=== PATIENT | female | born 2000 | race African-American/Black ===

== ENCOUNTER 2019-12-23 07:55 | Outpatient (CLI) | payer OTHER ==
--- NOTE | 2019-12-23 09:58 | ULT ---
ULTRASOUND COMPLETE GREATER THAN 14 WEEKS: HISTORY: Anatomy, cervix evaluation. FINDINGS: Single viable intrauterine fetus is noted in breech presentation. The placenta is posterior, but no evidence for placenta previa. heart rate 144 b.p.m. Amniotic fluid within normal limits. Cervical Length 3.2 cm. Anatomy: Visualized brain, 4-chamber heart, 3-vessel cord, stomach, bladder, kidney, spine, and extremit y regions were unremarkable, lips and nose region was somewhat obscured by the baby's hand. Biometry: BPD 5.3 cm-22 weeks 2 days Head circumference 20.6 cm-22 weeks 5 days Abdominal circumference 18.2 cm-23 weeks 1 day Femur 3.5 cm-21 weeks 2 days IMPRESSION: Single viable intrauterine fetus 22 weeks 3 days. Estimated date of delivery 04/22/2020. Estimated weight 489 gm. POS: OFF
== END 2019-12-23 07:56 | disposition home or self-care (01) ==
LOC: BICULT 07:55
PROVIDERS: ATTEND Family Medicine
DX: O09.892 Supervision of other high risk pregnancies, second trimester (principal); Z3A.22 22 weeks gestation of pregnancy
CPT/HCPCS: 76805

== ENCOUNTER 2020-03-30 23:12 | Inpatient (IN) | payer OTHER ==
[2020-03-30] MEDS ORDERED: hydrALAZINE 20 MG/ML VIAL SLOW IVP PRN (23:43)
--- NOTE | 2020-03-31 00:01 | PDOC.LDHP ---
Labor and Delivery H&P Chief complaint: contractions HPI: 20 y/o G1 at 36w5d, patient of Dr. Lizama, presents with ctx since 3:00pm, becoming more regular since 9:00pm. She also feels a lot of pelvic pressure. Denies VB, LOF, PIH sx, UTI sx, or decreased FM. ROS neg for HEENT, cv, pulm, gi, gu, neuro, psych, skin, musculoskeletal or constitutional symptoms other than mentioned above. OB History Details: First Current complications: none Past Medical History: None Current medications: pre- vitamins Previous surgical history: none Social history: none - Physical Exam Abnormal vital signs: mild to severe range BPs General: NAD, resting Lungs: nonlabored breathing Abdomen: gravid Extremeties: no edema FHT: category 1 (125, mod variability, + accels, no decels) [place] contractions every: 6 mins - Vaginal Exam cm dilated: 0 Effacement: 0% Station: -3 - OB Labs Blood type: B RH: positive - Assessment 20 y/o G1 at 36w5d with new onset mild to severe range BPs. status reassuring. - Plan Plan: admit to L&D -: Continue BP monitoring with treatment if needed PIH labs, UDS pending Dr. Lizama notified
[2020-03-31] MEDS ORDERED: Promethazine HCl 25 MG/ML VIAL IM PRN (00:05)
[2020-03-31] MEDS ORDERED: Acetaminophen 500 MG TAB PO PRN (00:05)
[2020-03-31] MEDS ORDERED: hydrALAZINE 20 MG/ML VIAL SLOW IVP PRN (00:05)
[2020-03-31 00:25] LABS: Hemoglobin 10.6 g/dL (12.0-16.0); Mean Corpuscular HGB CONC 33.2 g/dL (32.0-36.0); Mean Corpuscular Hemoglobin 26.9 pg (27.0-31.0); Mean Corpuscular Volume 80.9 fL (78.0-98.0); Platelet Count 298 thou/uL (130-400); RBC Distribution Width 14.1 % (11.5-14.5); Red Blood Cell (RBC) Count 3.94 mill/uL (4.20-5.40); White Blood Cell (WBC) Count 8.6 thou/uL (4.8-10.8)
[2020-03-31 00:37] LABS: ALT (SGPT) 127 U/L (8-55); AST (SGOT) 72 U/L (5-34); Albumin 3.3 g/dL (3.5-5.0); Alkaline Phosphatase 144 U/L (40-110); Anion Gap 15 mmol/L (10-20); BUN (Urea Nitrogen) 9 mg/dL (7.0-18.7); Bilirubin, Total 0.2 mg/dL (0.2-1.2); Calc. Creatinine Clearance 0 mL/min (70-130); Calcium 9.1 mg/dL (7.8-10.44); Carbon Dioxide 19 mmol/L (22-29); Chloride 108 mmol/L (98-107); Globulin 4.2 g/dL (2.4-3.5); Glucose 82 mg/dL (70-105); Potassium 3.7 mmol/L (3.5-5.1); Protein, Total 7.5 g/dL (6.0-8.3); Sodium 138 mmol/L (136-145)
[2020-03-31 00:38] VITALS: BMI 50.6
[2020-03-31 01:01] LABS: MDiff Complete? YES
[2020-03-31 01:02] LABS: Band 10 % (5-11); Lymphocytes 26 % (21-51); Monocytes 6 % (0-10); Neutrophil 58 % (42-75)
[2020-03-31 01:06] LABS: Amphetamine Not Detected (NotDetected); Barbiturates Screen Not Detected (NotDetected); Benzodiazepine Screen Not Detected (NotDetected); Cocaine Metabolite Screen Not Detected (NotDetected); Medtox Reader # READER 4; Methadone Not Detected (NotDetected); Methamphetamine Not Detected (NotDetected); Opiate Screen Not Detected (NotDetected); Oxycodone Screen Not Detected (NotDetected); Phencyclidine (PCP) Not Detected (NotDetected); THC/Cannabinoid Screen Not Detected (NotDetected); Tricyclic Screen Not Detected (NotDetected)
[2020-03-31 01:07] LABS: Medtox Control Line Valid? VALID (VALID)
[2020-03-31 01:11] LABS: Creatinine, Urine 135.82 mg/dL (47-110)
[2020-03-31 04:31] LABS: HBSAg Index 0.12 S/CO (0-0.99); Hep B Surf Ag Non-Reactive S/CO (NonReactive)
[2020-03-31 05:27] LABS: ALT (SGPT) 125 U/L (8-55); AST (SGOT) 68 U/L (5-34); Albumin 3.2 g/dL (3.5-5.0); Alkaline Phosphatase 145 U/L (40-110); Anion Gap 17 mmol/L (10-20); BUN (Urea Nitrogen) 8 mg/dL (7.0-18.7); Bilirubin, Total 0.2 mg/dL (0.2-1.2); Calc. Creatinine Clearance 249 mL/min (70-130); Calcium 9.1 mg/dL (7.8-10.44); Carbon Dioxide 19 mmol/L (22-29); Chloride 106 mmol/L (98-107); Globulin 3.6 g/dL (2.4-3.5); Glucose 70 mg/dL (70-105); Protein, Total 6.8 g/dL (6.0-8.3); Sodium 138 mmol/L (136-145)
[2020-03-31 06:12] LABS: Syphilis Antibody Nonreactive (Nonreactive); Syphilis Antibody Index 0.08 S/CO (<1.00 Non-Reactive)
[2020-03-31] MEDS ORDERED: Lidocaine 1% (PF) 30 ML VIAL SC PRN (08:02)
[2020-03-31] MEDS ORDERED: NS / Oxytocin 40 units/1000ml 1,000 ML IV PRN (08:02)
[2020-03-31] MEDS ORDERED: Misoprostol 200 MCG TAB PR PRN (08:02)
[2020-03-31] MEDS ORDERED: HYDROcodone/Acetaminophen 5/325 mg Tablet PO PRN ×2 (08:02)
[2020-03-31] MEDS ORDERED: Ibuprofen 800 MG TAB PO PRN (08:02)
[2020-03-31] MEDS ORDERED: Diphenoxylate HCl/Atropine Tablet PO PRN ×2 (08:02)
[2020-03-31] MEDS ORDERED: Carboprost 250 MCG/ML AMP IM PRN (08:02)
[2020-03-31] MEDS ORDERED: NS w/ Oxytocin 10 units 500 ML IV SCH (08:15)
[2020-03-31] MEDS ORDERED: Misoprostol 100 MCG TAB VAG SCH (08:15)
[2020-03-31 09:19] LABS: SARS-CoV-2 MS2 Positive; SARS-CoV-2 N Gene Negative; SARS-CoV-2 S Gene Negative; SARS-CoV-2 by NAA Not Detected (NotDetected); SARS-CoV-2 orf1ab Negative
[2020-03-31] MEDS ORDERED: Bupivacaine/Epinephrine 0.25% 30 ML VIAL ONE (12:24)
[2020-03-31] MEDS ORDERED: ePHEDrine 50 MG/ML VIAL ONE (12:24)
[2020-03-31] MEDS: Misoprostol 100 MCG TAB VAG SCH ×2 (14:11→23:38)
[2020-03-31] MEDS: Ondansetron PF 4 MG/2 ML Vial IVP PRN (17:00)
[2020-03-31] MEDS: Butorphanol Tartrate 1 MG/ML VIAL SLOW IVP PRN ×2 (18:04→22:17)
[2020-03-31] MEDS ORDERED: Penicillin G Potassium 5 MILL.UNITS VIAL ONE (18:36)
[2020-03-31] MEDS ORDERED: Zolpidem Tartrate 5 MG TAB PO PRN (23:50)
[2020-04-01] MEDS: Lactated Ringer's 1,000 ML IV SCH ×2 (00:05→19:17)
[2020-04-01] MEDS: Ondansetron PF 4 MG/2 ML Vial IVP PRN ×4 (00:31→20:49)
[2020-04-01] MEDS: Misoprostol 100 MCG TAB VAG SCH ×4 (02:45→20:35)
[2020-04-01] MEDS: Butorphanol Tartrate 1 MG/ML VIAL SLOW IVP PRN ×3 (06:49→18:33)
--- NOTE | 2020-04-01 07:57 | PRG ---
DATE OF SERVICE: 04/01/2020 HISTORY OF PRESENT ILLNESS: The patient is a 20-year-old morbidly obese female, diagnosed yesterday with preeclampsia with severe features as evidenced by twice normal LFTs and elevated blood pressures. She was started with Cytotec induction yesterday morning. Over the course of the day, the patient has received four doses of Cytotec. Blood pressures have remained primarily in the normal to mild range with some isolated severe pressures. The patient remains asymptomatic. Most recent blood pressure is 121/72 and heart rate of 94. In general, the patient was sleeping when I arrived to the room, easily arousable. The patient reports that she is having good pain control with the IV medications and that she slept fairly well last night with Ambien. PHYSICAL EXAMINATION: GENERAL: The patient appears to be in no acute distress. She is alert, oriented, cooperative, and pleasant to interact. HEAD: Normocephalic and atraumatic. : Cervical exam; cervix is soft, but still closed, finger able to pass through most of the cervical length. DIAGNOSTIC STUDIES: heart tracing shows the fetus with a baseline of around 120s and 130s with moderate variability, positive accelerations, no repetitive decelerations of concern. Tocometer is difficult to trace contractions. She has a lot of irritability with . Repeat CMP and hepatitis C antibody have been ordered this morning. ASSESSMENT AND PLAN: The patient is a 20-year-old female with preeclampsia severe by LFTs. We do have a hep C pending. She does have negative hepatitis B surface antigen and negative drug screen. We will continue Cytotec at this time for cervical ripening. She may benefit from a rest. She can shower, can eat, and then can proceed once again. Job ID: [id number]
[2020-04-01 12:20] LABS: ALT (SGPT) 111 U/L (8-55); AST (SGOT) 61 U/L (5-34); Albumin 3.4 g/dL (3.5-5.0); Alkaline Phosphatase 161 U/L (40-110); Anion Gap 14 mmol/L (10-20); BUN (Urea Nitrogen) 6 mg/dL (7.0-18.7); Bilirubin, Total 0.3 mg/dL (0.2-1.2); Calc. Creatinine Clearance 227 mL/min (70-130); Calcium 9.7 mg/dL (7.8-10.44); Carbon Dioxide 22 mmol/L (22-29); Chloride 106 mmol/L (98-107); Globulin 4.7 g/dL (2.4-3.5); Glucose 88 mg/dL (70-105); Potassium 3.8 mmol/L (3.5-5.1); Protein, Total 8.1 g/dL (6.0-8.3); Sodium 138 mmol/L (136-145)
[2020-04-01 12:35] LABS: Hep C IgG Ab Non-Reactive (NonReactive); Hep C Index 0.09 S/CO (0-0.79)
--- NOTE | 2020-04-01 13:30 | OP ---
DATE OF PROCEDURE: 04/01/2020 TIME OF SERVICE: 1300 hours. SUBJECTIVE: Ms. Abdi not made significant cervical change after multiple doses of Cytotec. Dr. Graham and I discussed her care this morning and gave in the morning. She had clear liquids several times, however, she is kind of had persistent nausea and vomiting that I attribute to multiple doses of Cytotec. Her blood pressures have remained, not requiring Apresoline or labetalol at this point in time. She and I discussed her options, and at this point in time, we will go ahead and proceed with Cook cervical dilatation balloon. Sliding speculum was placed in vagina. The cervix was identified, cleaned with Betadine. The Cook balloon was easily introduced at fingertip and 20% effaced. It was introduced and 20 mL placed in the inner balloon, pulled snugly up against the cervix and 20 mL put in the outer balloon. The Sliding speculum was removed and another 40 mL was placed in each balloon for total of 60 and 60. Those will be left there until approximately 0100 on 04/02 and plan removal at that time with Pitocin induction. We will follow blood pressures. Job ID: [id number]
[2020-04-01 22:42] LABS: Band 3 % (5-11); Hemoglobin 12.3 g/dL (12.0-16.0); Lymphocytes 15 % (21-51); MDiff Complete? YES; Mean Corpuscular HGB CONC 32.2 g/dL (32.0-36.0); Mean Corpuscular Hemoglobin 26.5 pg (27.0-31.0); Mean Corpuscular Volume 82.1 fL (78.0-98.0); Mean Platelet Volume 8.3 fL (7.4-10.4); Monocytes 5 % (0-10); Neutrophil 77 % (42-75); Platelet Count 316 thou/uL (130-400); Platelet Morphology Comment Appears Adequate; RBC Distribution Width 14.5 % (11.5-14.5); Red Blood Cell (RBC) Count 4.64 mill/uL (4.20-5.40)
[2020-04-02] MEDS: Misoprostol 100 MCG TAB VAG SCH ×5 (00:22→15:01)
[2020-04-02] MEDS: Lactated Ringer's 1,000 ML IV SCH ×3 (00:23→08:57)
[2020-04-02] MEDS: Ondansetron PF 4 MG/2 ML Vial IVP PRN (01:32)
[2020-04-02] MEDS: Butorphanol Tartrate 1 MG/ML VIAL SLOW IVP PRN ×3 (01:42→07:11)
[2020-04-02] MEDS ORDERED: Penicillin G Potassium 5 MILL.UNITS VIAL ONE (01:50)
[2020-04-02] MEDS ORDERED: Penicillin G Potassium 5 MILL.UNITS in Sodium Chloride 0.9% 100 ML IVPB SCH (02:15)
[2020-04-02] MEDS: Penicillin G 2.5 MILL.units 50 ML IVPB SCH ×3 (06:26→16:24)
--- NOTE | 2020-04-02 07:14 | PRG ---
DATE OF SERVICE: 04/02/2020 TIME OF SERVICE: 0650. SUBJECTIVE: Ms. Abdi is resting comfortably. Her Pit is at 4. Her cervix is 5, 80, -1 per RN exam, intact. Blood pressures have been ranging 130s to 150 systolic over 80s to 90s diastolic. She is resting comfortably. LABORATORY DATA: Repeat a.m. base met, AST and CBC were ordered. The only one that is back is a hematocrit which is at 38% with normal platelet count at 316. Urine output remains the same. IMPRESSION: Severe gestational hypertension, status post Cytotec, now status post cervical dilatation balloon and on Pitocin. PLAN: Continue Pitocin. Anticipate spontaneous vaginal delivery. We will follow up repeat labs. Dr. Graham will be taking over patient's care at 0800. Job ID: [id number]
[2020-04-02 07:16] LABS: AST (SGOT) 45 U/L (5-34); Anion Gap 18 mmol/L (10-20); BUN (Urea Nitrogen) 7 mg/dL (7.0-18.7); Calc. Creatinine Clearance 222 mL/min (70-130); Calcium 9.3 mg/dL (7.8-10.44); Carbon Dioxide 17 mmol/L (22-29); Chloride 107 mmol/L (98-107); Glucose 89 mg/dL (70-105); Potassium 3.6 mmol/L (3.5-5.1); Sodium 138 mmol/L (136-145)
[2020-04-02] MEDS ORDERED: DISCONTINUE ALL PREVIOUS NARCOTICS FS SCH (07:45)
[2020-04-02] MEDS ORDERED: Bupivacaine 0.5% 20 ML, fentaNYL Citrate/PF 400 MCG in Sodium Chloride 0.9% 72 ML EPIDURAL SCH (07:45)
[2020-04-02] MEDS ORDERED: Ondansetron PF 4 MG/2 ML Vial IVP PRN ×2 (08:32→15:58)
[2020-04-02] MEDS ORDERED: Lactated Ringer's 500 ML IV PRN (08:32)
[2020-04-02] MEDS ORDERED: Naloxone HCl 0.4 mg/ml Vial IVP PRN ×2 (08:32)
[2020-04-02] MEDS ORDERED: Acetaminophen 325 MG TAB PO PRN (08:32)
[2020-04-02] MEDS ORDERED: ePHEDrine 50 MG/ML VIAL SLOW IVP PRN (08:32)
[2020-04-02] MEDS ORDERED: Promethazine HCl 25 MG/ML VIAL IM PRN (08:32)
[2020-04-02] MEDS ORDERED: diphenhydrAMINE 50 MG/ML VIAL IVP PRN (08:32)
[2020-04-02] MEDS ORDERED: Fentanyl 4 mcg/Bupivacaine 0.1% Cassette 100 ML EPIDURAL SCH (08:45)
[2020-04-02] MEDS ORDERED: Communication Order-Pharmacy FS SCH (08:45)
[2020-04-02] MEDS ORDERED: Misoprostol 200 MCG TAB ONE (14:32)
[2020-04-02] MEDS ORDERED: Carboprost 250 MCG/ML AMP ONE (14:32)
[2020-04-02] MEDS ORDERED: Bisacodyl 10 MG SUPP PR PRN (15:58)
[2020-04-02] MEDS ORDERED: Adacel (T-DAP) 0.5 ML SYRINGE IM ONE (15:58)
[2020-04-02] MEDS ORDERED: hydrALAZINE 20 MG/ML VIAL SLOW IVP PRN (15:58)
[2020-04-02] MEDS ORDERED: Milk Of Magnesia 30 ML UDCUP PO PRN (15:58)
[2020-04-02] MEDS ORDERED: Zolpidem Tartrate 5 MG TAB PO PRN (15:58)
[2020-04-02] MEDS ORDERED: Preparation H Ointment 28 GM TUBE PR PRN (15:58)
[2020-04-02] MEDS ORDERED: NS / Oxytocin 40 units/1000ml 1,000 ML IV SCH (15:58)
[2020-04-02] MEDS ORDERED: Lanolin Ointment 7 GM TUBE TOP PRN (15:58)
--- NOTE | 2020-04-02 16:36 | DN ---
DATE OF PROCEDURE: 04/02/2020 PRIMARY OB: Dr. Angel Lizama. The patient delivered a male on 04/02/2020 by an uncomplicated term spontaneous vaginal delivery at 37 weeks and a day at 1424 hours. Apgars were 8 and 9. weight 2736 g. Placenta delivered spontaneously followed by Pitocin infusion. There was a first-degree laceration repaired for hemostasis. Dr. Graham is the delivering physician. Quantitative blood loss is 258 mL. Counts were correct. Complications, none. Mother and baby are stable in the room in the immediate . Job ID: [id number]
[2020-04-02] MEDS ORDERED: Ferrous Sulfate 325 MG TAB PO SCH (17:00)
[2020-04-02] MEDS: Ibuprofen 800 MG TAB PO SCH (22:09)
[2020-04-02] MEDS: Docusate Calcium (SURFAK) 240 MG CAP PO SCH (22:09)
[2020-04-02] MEDS ORDERED: Sodium Chloride 0.9% 10 ML ONE (23:31)
[2020-04-03] MEDS: diphenhydrAMINE 25 MG CAP PO PRN ×2 (01:07→09:16)
[2020-04-03] MEDS: Ibuprofen 800 MG TAB PO SCH ×5 (01:07→21:36)
[2020-04-03 06:09] LABS: Hemoglobin 9.7 g/dL (12.0-16.0)
[2020-04-03] MEDS ORDERED: Promethazine 25 MG TAB PO PRN (06:42)
--- NOTE | 2020-04-03 08:03 | PRG ---
DATE OF SERVICE: 04/03/2020 PRIMARY OB: Angel Lizama MD SUBJECTIVE: The patient is day 1, status post a term spontaneous vaginal delivery. Her course has been complicated with preeclampsia with severe features. The patient yesterday had a temperature T-max of 100.7, which was not treated. Over the subsequent course the day, the patient's temperature did not spike again. Her current temperature this morning is 99.1. The patient reports that she is having no pain, but that she is having difficulty eating as when she tries to eat, she throws up. This has been a problem that she has been experiencing since earlier in her labor course. OBJECTIVE: VITAL SIGNS: Overnight also, the patient's blood pressures have primarily remained in the mild range. A T-max of . Current blood pressure is 147/78, temperature 99.1, pulse of 87, respiratory rate of 20, saturating at 98% on room air. GENERAL: She appears to be in no acute distress. She is resting at the time of my evaluation. She is alert, oriented, and in no acute distress. PELVIS: Her fundus is difficult to assess, but it is nontender to palpation. LABORATORY DATA: Hemoglobin and hematocrit this morning are 9.7 and 28.0. ASSESSMENT AND PLAN: The patient is a 20-year-old female, day 1, status post a term spontaneous vaginal delivery. The patient's course has been complicated by preeclampsia with severe features by elevated LFTs. She continues to have nausea and vomiting this morning when eating. We will repeat her CMP this morning to make sure her LFTs are dropping and check a white count. If the patient spikes no temperature today, we will start antibiotics for endometritis; though, clinically at this time, the patient has no signs of it. Job ID: [id number]
[2020-04-03 08:26] LABS: Hemoglobin 9.6 g/dL (12.0-16.0); Mean Corpuscular HGB CONC 33.6 g/dL (32.0-36.0); Mean Corpuscular Hemoglobin 27.6 pg (27.0-31.0); Mean Corpuscular Volume 82.3 fL (78.0-98.0); Mean Platelet Volume 7.9 fL (7.4-10.4); Platelet Count 259 thou/uL (130-400); RBC Distribution Width 14.3 % (11.5-14.5); Red Blood Cell (RBC) Count 3.49 mill/uL (4.20-5.40); White Blood Cell (WBC) Count 14.1 thou/uL (4.8-10.8)
[2020-04-03 08:41] LABS: ALT (SGPT) 55 U/L (8-55); AST (SGOT) 30 U/L (5-34); Albumin 2.9 g/dL (3.5-5.0); Alkaline Phosphatase 115 U/L (40-110); Anion Gap 16 mmol/L (10-20); BUN (Urea Nitrogen) 5 mg/dL (7.0-18.7); Bilirubin, Total 0.3 mg/dL (0.2-1.2); Calc. Creatinine Clearance 233 mL/min (70-130); Calcium 8.7 mg/dL (7.8-10.44); Carbon Dioxide 19 mmol/L (22-29); Chloride 109 mmol/L (98-107); Globulin 3.7 g/dL (2.4-3.5); Glucose 87 mg/dL (70-105); Potassium 3.5 mmol/L (3.5-5.1); Protein, Total 6.6 g/dL (6.0-8.3); Sodium 140 mmol/L (136-145)
[2020-04-03] MEDS ORDERED: Prenatal Vitamin 1 TAB PO SCH (09:00)
[2020-04-03 09:02] LABS: Band 3 % (5-11); Eosinophils 3 % (0-10); Large Platelets SLIGHT; Lymphocytes 9 % (21-51); MDiff Complete? YES; Monocytes 7 % (0-10); Neutrophil 78 % (42-75); Platelet Morphology Comment Appears Adequate
[2020-04-03] MEDS: Docusate Calcium (SURFAK) 240 MG CAP PO SCH ×4 (09:16→21:38)
[2020-04-03] MEDS: Metoclopramide HCl 10 MG TAB PO SCH ×3 (09:16→21:36)
[2020-04-04] MEDS: Ibuprofen 800 MG TAB PO SCH ×3 (05:44→21:43)
--- NOTE | 2020-04-04 07:18 | PDOC.PP ---
Post Progress Note Post Day #: 2 Subjective: Doing well. Has an appetite this morning, is waiting to see if her breakfast stays down. She has tolerated jello thus far. PO intake tolerated: no Flatus: yes Ambulation: yes Vital Signs (12 hours) Temp Pulse Resp BP Pulse Ox 04/04/20 05:45 98.9 F 92 20 141/74 H 97 04/03/20 20:20 98.9 F 95 20 134/74 95 Weight Weight 133.81 kg - Physical Examination General: NAD Cardiovascular: no m/r/g, RRR Respiratory: clear to auscultation bilaterally, non-labored breathing Abdominal: + bowel sounds, lochia, no distention, appropriately TTP Neurological: no gross focal deficits Psychiatric: A&Ox3, normal affect Result Diagrams: 04/03/20 08:06 04/03/20 08:06 Additional Labs: Post Labs Hep Bs Antigen Non-Reactive S/CO (NonReactive) 03/31/20 03:14 Blood Type B POSITIVE 03/31/20 03:14 (1) Term delivered Code(s): O80 - ENCOUNTER FOR FULL-TERM UNCOMPLICATED DELIVERY Status: Acute (2) Severe pre-eclampsia Code(s): O14.10 - SEVERE PRE-ECLAMPSIA, UNSPECIFIED TRIMESTER Status: Acute - Assessment/Plan PPD #2 s/p 04/02 - Routine recovery. - Has remained afebrile Pre-eclampsia with severe range pressures - Will monitor overnight one more night for blood pressure. - LFTs have continued to trend down. Emanuel CROWLEY PGY2 Discussed with Dr. Graham attending.
[2020-04-04] MEDS: Metoclopramide HCl 10 MG TAB PO SCH ×4 (08:48→21:42)
[2020-04-04] MEDS: Docusate Calcium (SURFAK) 240 MG CAP PO SCH ×2 (08:48→21:43)
--- NOTE | 2020-04-04 17:06 | PDOC.BPN ---
- Brief Progress Note Called by LEISA Marsh regarding patients borderline BPs up to highest 156 systolic. I will order lasix 20mg po x 1 now. D/W Salma
[2020-04-05] MEDS: Ibuprofen 800 MG TAB PO SCH (05:45)
[2020-04-05] MEDS: Docusate Calcium (SURFAK) 240 MG CAP PO SCH (08:30)
[2020-04-05] MEDS: Metoclopramide HCl 10 MG TAB PO SCH (08:30)
[2020-04-05 08:49] VITALS: BP 140/82; TEMP 99.1
[2020-04-05] MEDS ORDERED: Furosemide 20 MG TAB PO SCH (09:00)
== END 2020-04-05 11:45 | disposition home or self-care (01) | DRG 807 ==
LOC: L&D/OP 23:12 → L&D 03-31 04:59 → 3SW 04-02 17:25
PROVIDERS: ADMIT Family Medicine; ATTEND Family Medicine
PROC: 0U7C7ZZ Dilation of Cervix, Via Natural or Artificial Opening (ICD-10-PCS; 2020-04-01)
PROC: 3E0P7VZ Introduction of Hormone into Female Reproductive, Via Natural or Artificial Opening (ICD-10-PCS; 2020-04-01)
PROC: 3E033VJ Introduction of Other Hormone into Peripheral Vein, Percutaneous Approach (ICD-10-PCS; 2020-04-01)
PROC: 10E0XZZ Delivery of Products of Conception, External Approach (ICD-10-PCS; principal; 2020-04-02)
PROC: 0HQ9XZZ Repair Perineum Skin, External Approach (ICD-10-PCS; 2020-04-02)
DX: O14.14 Severe pre-eclampsia complicating childbirth (principal); Z37.0 Single live birth; Z20.828 Contact with and (suspected) exposure to other viral communicable diseases; O99.214 Obesity complicating childbirth; E66.01 Morbid (severe) obesity due to excess calories; O70.0 First degree perineal laceration during delivery; Z3A.36 36 weeks gestation of pregnancy
CPT/HCPCS: 36415; 51702; 80048; 80053; 80306; 82570; 84156; 84450; 85014; 85018; 85025; 86780; 86803; 86850; 86900; 86901; 87340; 87635; 99285; J0595; J2405; J2540; J2550; J3010; J3490; Q0163; U0003

== ENCOUNTER 2021-05-17 17:13 | Inpatient (IN) | payer OTHER ==
[2021-05-17] MEDS ORDERED: Morphine 4 MG/ML VIAL ONE (17:58)
[2021-05-17] MEDS ORDERED: Ondansetron PF 4 MG/2 ML Vial ONE (17:58)
[2021-05-17] MEDS ORDERED: PROPOFOL 0 ML ONE (20:26)
[2021-05-17 20:41] LABS: #Lymphocytes 1.5 thou/uL (1.20-3.40); #Monocytes 0.4 thou/uL (0.11-0.59); #Neutrophils 6.5 thou/uL (1.40-6.50); %Basophils 0.5 % (0.0-1.0); %Eosinophils 0.6 % (0.0-10.0); %Lymphocytes 17.4 % (21.0-51.0); %Monocytes 4.5 % (0.0-10.0); %Neutrophils 77.1 % (42.0-75.0); Hemoglobin 13.4 g/dL (12.0-16.0); Mean Corpuscular HGB CONC 32.5 g/dL (32.0-36.0); Mean Corpuscular Hemoglobin 26.1 pg (27.0-31.0); Mean Corpuscular Volume 80.1 fL (78.0-98.0); Mean Platelet Volume 7.4 fL (7.4-10.4); Platelet Count 312 thou/uL (130-400); RBC Distribution Width 15.5 % (11.5-14.5); Red Blood Cell (RBC) Count 5.13 mill/uL (4.20-5.40); White Blood Cell (WBC) Count 8.5 thou/uL (4.8-10.8)
[2021-05-17] MEDS ORDERED: Ondansetron PF 4 MG/2 ML Vial IVP PRN (20:48)
[2021-05-17] MEDS ORDERED: hydrALAZINE 20 MG/ML VIAL SLOW IVP PRN (20:48)
[2021-05-17] MEDS ORDERED: Dextrose 5% in Water 1,000 ML IV PRN (20:48)
[2021-05-17] MEDS ORDERED: Ketamine 50 MG/ML (10ML VIAL) ONE (20:48)
[2021-05-17] MEDS ORDERED: Morphine 4 MG/ML VIAL SLOW IVP PRN (20:48)
[2021-05-17] MEDS ORDERED: Dextrose 50% Abboject 50 ML SYRINGE SLOW IVP PRN (20:48)
[2021-05-17 20:53] LABS: Prothrombin Time 13.3 sec (12.0-14.7)
[2021-05-17 20:54] LABS: PTT 31.5 sec (22.9-36.1)
[2021-05-17] MEDS ORDERED: Cyclobenzaprine 10 MG TAB PO PRN (20:54)
[2021-05-17 20:56] LABS: BHCG - Serum Negative (NEGATIVE); Pregs Control Background? CLEAR/WHITE (CLR/WHITE); Pregs Control Bar Appear? YES (CONTROL BAR)
[2021-05-17] MEDS ORDERED: traMADol HCl 50 MG TAB PO PRN (20:56)
[2021-05-17 20:58] LABS: ALT (SGPT) 18 U/L (8-55); AST (SGOT) 19 U/L (5-34); Albumin 4.3 g/dL (3.5-5.0); Alkaline Phosphatase 57 U/L (40-110); Anion Gap 15 mmol/L (10-20); BUN (Urea Nitrogen) 7 mg/dL (7.0-18.7); Bilirubin, Total 0.4 mg/dL (0.2-1.2); Calc. Creatinine Clearance 0 mL/min (70-130); Calcium 9.9 mg/dL (7.8-10.44); Carbon Dioxide 23 mmol/L (22-29); Chloride 105 mmol/L (98-107); Globulin 5.2 g/dL (2.4-3.5); Glucose 94 mg/dL (70-105); Magnesium 2.2 mg/dL (1.6-2.6); Phosphorus 2.8 mg/dL (2.3-4.7); Protein, Total 9.5 g/dL (6.0-8.3); Sodium 139 mmol/L (136-145)
[2021-05-17] MEDS ORDERED: Sodium Chloride 0.9% 1,000 ML IV SCH (21:00)
[2021-05-17] MEDS ORDERED: PHOS-NAK 1 PKT PACK PO SCH (21:00)
[2021-05-17 23:05] VITALS: BMI 52.8
[2021-05-18] MEDS: Gabapentin 300 MG CAP PO SCH ×4 (00:01→20:38)
[2021-05-18] MEDS: Famotidine/PF 20 mg/2ml Vial SLOW IVP SCH ×2 (00:01→08:41)
[2021-05-18] MEDS: Acetaminophen 500 MG TAB PO SCH ×4 (00:02→17:23)
[2021-05-18] MEDS: Senokot S 8.6-50 MG TAB PO SCH ×3 (00:02→20:51)
[2021-05-18] MEDS: Ibuprofen 200 MG TAB PO SCH ×4 (00:02→22:56)
[2021-05-18 01:16] LABS: SARS-CoV-2 NAA Rapid Test Not Detected (NotDetected)
[2021-05-18 06:24] LABS: Hemoglobin 11.4 g/dL (12.0-16.0); Mean Corpuscular Hemoglobin 25.6 pg (27.0-31.0); Mean Corpuscular Volume 79.9 fL (78.0-98.0); Mean Platelet Volume 7.5 fL (7.4-10.4); Platelet Count 278 thou/uL (130-400); RBC Distribution Width 15.4 % (11.5-14.5); Red Blood Cell (RBC) Count 4.47 mill/uL (4.20-5.40); White Blood Cell (WBC) Count 6.8 thou/uL (4.8-10.8)
[2021-05-18 06:49] LABS: Anion Gap 12 mmol/L (10-20); BUN (Urea Nitrogen) 8 mg/dL (7.0-18.7); Calc. Creatinine Clearance 230 mL/min (70-130); Carbon Dioxide 22 mmol/L (22-29); Chloride 109 mmol/L (98-107); Glucose 116 mg/dL (70-105); Phosphorus 3.8 mg/dL (2.3-4.7); Potassium 3.5 mmol/L (3.5-5.1); Sodium 139 mmol/L (136-145)
[2021-05-18 08:01] LABS: Band 8 % (5-11); Eosinophils 1 % (0-10); Lymphocytes 38 % (21-51); MDiff Complete? YES; Monocytes 3 % (0-10); Neutrophil 50 % (42-75); Platelet Morphology Comment Appears Adequate; Polychromasia SLIGHT = 2-3 cells (100X) (0-2/hpf)
[2021-05-18] MEDS ORDERED: ceFAZolin 2 GM/Dextrose 50 ML 2 GM in Premix Bag 1 BAG IVPB SCH (08:30)
[2021-05-18] MEDS: Polyethylene Glycol 3350 17 GM Packet PO SCH (08:41)
[2021-05-18] MEDS ORDERED: Fentanyl 100 MCG/2 ML VIAL ONE ×4 (11:56→15:47)
[2021-05-18] MEDS ORDERED: Midazolam HCl 2 mg/2 ml Vial ONE (11:56)
[2021-05-18] MEDS ORDERED: ceFAZolin 2 GM/Dextrose 50 ML IVPB ONE ×3 (12:36)
[2021-05-18] MEDS ORDERED: Lidocaine 1% PF 5 ML VIAL ONE (13:06)
[2021-05-18] MEDS ORDERED: Glycopyrrolate 0.2 MG/ML 5 ML SYRINGE ONE (13:06)
[2021-05-18] MEDS ORDERED: Dexamethasone 20 MG/5 ML VIAL ONE (13:06)
[2021-05-18] MEDS ORDERED: Ondansetron PF 4 MG/2 ML Vial ONE (13:06)
[2021-05-18] MEDS ORDERED: Rocuronium Bromide 10 MG/ML (10ML VIAL) ONE (13:06)
[2021-05-18] MEDS ORDERED: PROPOFOL 200 MG/20 ML VIAL ONE (13:06)
[2021-05-18] MEDS ORDERED: Bupivacaine HCl 0.5%/Epinephrine 1:200,000/PF 30 ml Vial ONE (13:06)
[2021-05-18] MEDS ORDERED: Bupivacaine PF 0.5% 30 ML VIAL ONE (14:28)
[2021-05-18] MEDS ORDERED: Ondansetron HCl/PF 4 MG/2 ML Vial IVP PRN (16:08)
[2021-05-18] MEDS ORDERED: Promethazine HCl 25 MG/ML VIAL IM PRN (16:08)
[2021-05-18] MEDS ORDERED: Promethazine HCl 25 MG/ML VIAL IVPB PRN (16:08)
[2021-05-18] MEDS ORDERED: Ketorolac Tromethamine 30 MG/ML VIAL IVP PRN (16:08)
[2021-05-18] MEDS ORDERED: Ketorolac Tromethamine 30 MG/ML VIAL ONE (16:13)
[2021-05-18] MEDS: traMADol HCl 50 MG TAB PO PRN (17:22)
[2021-05-18] MEDS: ceFAZolin 2 GM/Dextrose 50 ML 2 GM in Premix Bag 1 BAG IVPB SCH (22:56)
[2021-05-19] MEDS: Acetaminophen 500 MG TAB PO SCH ×2 (00:47→05:30)
[2021-05-19] MEDS: Ibuprofen 200 MG TAB PO SCH (05:30)
[2021-05-19] MEDS: ceFAZolin 2 GM/Dextrose 50 ML 2 GM in Premix Bag 1 BAG IVPB SCH (05:31)
[2021-05-19 08:00] VITALS: TEMP 97.9
[2021-05-19] MEDS ORDERED: Enoxaparin Sodium 40 MG/0.4 ML SYRINGE SC SCH (09:00)
[2021-05-19] MEDS: traMADol HCl 50 MG TAB PO PRN (09:48)
[2021-05-19] MEDS: Senokot S 8.6-50 MG TAB PO SCH (09:49)
[2021-05-19] MEDS: Gabapentin 300 MG CAP PO SCH (09:49)
[2021-05-19] MEDS: Polyethylene Glycol 3350 17 GM Packet PO SCH (09:50)
[2021-05-19 11:22] VITALS: BP 126/78
== END 2021-05-19 15:34 | disposition home or self-care (01) | DRG 494 ==
LOC: ERS 17:13 → SURG A 20:48
PROVIDERS: ADMIT Surgery; ATTEND Surgery
PROC: 0SSFXZZ Reposition Right Ankle Joint, External Approach (ICD-10-PCS; 2021-05-17)
PROC: 0QSJ04Z Reposition Right Fibula with Internal Fixation Device, Open Approach (ICD-10-PCS; principal; 2021-05-18)
PROC: 0QSG04Z Reposition Right Tibia with Internal Fixation Device, Open Approach (ICD-10-PCS; 2021-05-18)
DX: S82.851A Displaced trimalleolar fracture of right lower leg, initial encounter for closed fracture (principal); I10 Essential (primary) hypertension; Z20.822 Contact with and (suspected) exposure to COVID-19; W01.0XXA Fall on same level from slipping, tripping and stumbling without subsequent striking against object, initial encounter; Y92.002 Bathroom of unspecified non-institutional (private) residence as the place of occurrence of the external cause; Z79.899 Other long term (current) drug therapy
CPT/HCPCS: 27840; 36415; 71045; 76000; 80048; 80053; 83735; 84100; 84703; 85025; 85610; 85730; 96374; 96375; C1713; C1776; G0390; J0690; J1100; J1650; J1885; J2250; J2270; J2405; J2704; J3010; J7050; S0020; S0028; U0002